=== PATIENT | female | born 1950 | race Caucasian/White ===

== ENCOUNTER 2018-07-07 13:20 | Emergency (ER) | payer OTHER, MEDICAID ==
[~2018-07-07] VITALS: Ht 157.5 cm; Wt 110.7 kg
[2018-07-07 13:44] VITALS: BP 171/82
[2018-07-07] MEDS ORDERED: ALBUTEROL/IPRATROPIUM 2.5MG/0.5MG, 3 ML NPPB ONE (14:00)
[2018-07-07 14:09] LABS: BASOPHILS # (AUTO) 0.04 x10^3/uL (0-0.1); BASOPHILS % (AUTO) 0 % (0-1); EOSINOPHILS # (AUTO) 0.28 x10^3/uL (0-0.4); EOSINOPHILS % (AUTO) 3 % (1-7); LYMPHOCYTES # (AUTO) 2.42 x10^3/uL (1-3.4); LYMPHOCYTES % (AUTO) 28 % (22-44); MD NO; MEAN CORPUSCULAR HEMOGLOBIN 28.7 pg (27.0-34.8); MEAN CORPUSCULAR HGB CONC 33.3 g/dL (32.4-35.8); MEAN CORPUSCULAR VOLUME 86.2 fL (80-100); MONOCYTES % (AUTO) 6 % (2-9); NEUTROPHILS # (AUTO) 5.55 x10^3/uL (1.8-6.8); NEUTROPHILS % (AUTO) 63 % (42-75); PLATELET COUNT 319 x10^3/uL (130-400); RED BLOOD COUNT 5.29 x10^6/uL (3.82-5.3); RED CELL DISTRIBUTION WIDTH 13.9 % (9.6-15.2)
[2018-07-07 14:19] LABS: ALANINE AMINOTRANSFERASE 21 U/L (12-78); ALBUMIN 3.4 g/dL (3.4-5.0); ANION GAP 5 mmol/L (5-15); CHLORIDE 109 mmol/L (98-107); CREATININE 0.84 mg/dL (0.55-1.02)
[2018-07-07 14:23] LABS: ALKALINE PHOSPHATASE 101 U/L (45-117); BILIRUBIN,TOTAL 0.4 mg/dL (0.2-1.0); TOTAL PROTEIN 7.4 g/dL (6.4-8.2); TROPONIN I < 0.015 ng/mL (0.000-0.045)
--- NOTE | 2018-07-07 16:45 | NUR ---
CALLED PT TO DO REPEAT VITALS AND PT DID NOT ANSWER.
--- NOTE | 2018-07-07 16:55 | NUR ---
CALLED PT TO DO REPEAT VITALS AND PT DID NOT ANSWER.
--- NOTE | 2018-07-07 17:03 | NUR ---
JANITOR CARETAKER: CALLED FOR ROOM, NO ANSWER
== END 2018-07-07 17:06 | disposition left against medical advice (07) ==
LOC: ED 17:00
DX: R06.00 Dyspnea, unspecified (principal); R05 Cough
CPT/HCPCS: 36415; 71046; 80053; 83880; 84484; 85025; 99284

== ENCOUNTER 2018-09-08 17:01 | Inpatient (IN) | payer MEDICAID, OTHER ==
[~2018-09-08] VITALS: Ht 167.6 cm; Wt 114.7 kg
[2018-09-08 17:32] LABS: BASOPHILS # (AUTO) 0.05 x10^3/uL (0-0.1); BASOPHILS % (AUTO) 1 % (0-1); EOSINOPHILS # (AUTO) 0.27 x10^3/uL (0-0.4); EOSINOPHILS % (AUTO) 3 % (1-7); LYMPHOCYTES # (AUTO) 2.38 x10^3/uL (1-3.4); LYMPHOCYTES % (AUTO) 25 % (22-44); MD NO; MEAN CORPUSCULAR HEMOGLOBIN 28.5 pg (27.0-34.8); MEAN CORPUSCULAR HGB CONC 33.4 g/dL (32.4-35.8); MEAN CORPUSCULAR VOLUME 85.4 fL (80-100); MEAN PLATELET VOLUME 7.7 fL (7.4-10.4); MONOCYTES % (AUTO) 7 % (2-9); NEUTROPHILS # (AUTO) 6.03 x10^3/uL (1.8-6.8); NEUTROPHILS % (AUTO) 64 % (42-75); PLATELET COUNT 316 x10^3/uL (130-400); RED BLOOD COUNT 5.29 x10^6/uL (3.82-5.3); RED CELL DISTRIBUTION WIDTH 14.1 % (9.6-15.2)
[2018-09-08 17:44] LABS: ALANINE AMINOTRANSFERASE 17 U/L (12-78); ALBUMIN 3.6 g/dL (3.4-5.0); ANION GAP 5 mmol/L (5-15); CALCIUM 9.3 mg/dL (8.5-10.1); CHLORIDE 108 mmol/L (98-107)
[2018-09-08] MEDS ORDERED: ALBUTEROL/IPRATROPIUM 2.5MG/0.5MG, 3 ML ONE (17:46)
[2018-09-08 17:48] LABS: ALKALINE PHOSPHATASE 107 U/L (45-117); BILIRUBIN,TOTAL 0.3 mg/dL (0.2-1.0); TOTAL PROTEIN 7.8 g/dL (6.4-8.2); TROPONIN I < 0.015 ng/mL (0.000-0.045)
[2018-09-08] MEDS ORDERED: methylPREDNISolone SOD SUCC 125 MG/2 ML IVP ONE (18:00)
[2018-09-08] MEDS ORDERED: SODIUM CHLORIDE FLUSH 10ML SYR IVF ONE (18:00)
[2018-09-08] MEDS ORDERED: methylPREDNISolone SOD SUCC 125 MG/2 ML ONE (18:01)
--- NOTE | 2018-09-08 19:28 | NUR ---
TP RN: CALLED [facility] PT. HAS [employer]; PER CORNELL CARTWRIGHT THEY WILL NOT ACCEPT PT. FOR TRASNFER UNLESS A HIGHER LEVEL OF CARE IS NECESSARY.
[2018-09-08] MEDS ORDERED: SODIUM CHLORIDE FLUSH 10ML SYR IVF PRN (19:30)
[2018-09-08] MEDS ORDERED: ACETAMINOPHEN 325 MG TABLET PO PRN (20:00)
[2018-09-08] MEDS ORDERED: hydrALAzine 20 MG/ML, 1ML IVPush PRN (20:00)
[2018-09-08] MEDS ORDERED: POLYETHYLENE GLYCOL 17 GM PACKET PO PRN (20:00)
[2018-09-08 20:10] VITALS: BP 118/67
[2018-09-08] MEDS: NICOTINE 21 MG/24 HR PATCH.TD24 TD SCH (20:57)
[2018-09-08] MEDS: ENOXAPARIN 40 MG/0.4 ML SQ SCH (21:00)
[2018-09-08 21:04] VITALS: BP 118/67
[2018-09-09] MEDS: methylPREDNISolone SOD SUCC 125 MG/2 ML IVPush SCH ×5 (00:26→23:33)
[2018-09-09] MEDS ORDERED: ALBUTEROL/IPRATROPIUM 2.5MG/0.5MG, 3 ML NPPB PRN (00:30)
[2018-09-09 01:01] VITALS: BP 126/70
[2018-09-09 05:36] LABS: BASOPHILS # (AUTO) 0.02 x10^3/uL (0-0.1); BASOPHILS % (AUTO) 0 % (0-1); EOSINOPHILS % (AUTO) 0 % (1-7); LYMPHOCYTES # (AUTO) 0.79 x10^3/uL (1-3.4); LYMPHOCYTES % (AUTO) 11 % (22-44); MD NO; MEAN CORPUSCULAR HEMOGLOBIN 28.8 pg (27.0-34.8); MEAN CORPUSCULAR HGB CONC 33.6 g/dL (32.4-35.8); MEAN CORPUSCULAR VOLUME 85.6 fL (80-100); MONOCYTES # (AUTO) 0.04 x10^3/uL (0.2-0.8); MONOCYTES % (AUTO) 1 % (2-9); NEUTROPHILS # (AUTO) 6.41 x10^3/uL (1.8-6.8); NEUTROPHILS % (AUTO) 88 % (42-75); PLATELET COUNT 302 x10^3/uL (130-400); RED BLOOD COUNT 4.95 x10^6/uL (3.82-5.3); RED CELL DISTRIBUTION WIDTH 14.1 % (9.6-15.2)
[2018-09-09 05:45] LABS: ANION GAP 5 mmol/L (5-15); CALCIUM 9.3 mg/dL (8.5-10.1); CHLORIDE 106 mmol/L (98-107)
[2018-09-09 05:46] LABS: CREATININE 0.83 mg/dL (0.55-1.02)
[2018-09-09 07:37] VITALS: BP 129/75
[2018-09-09 12:53] VITALS: BP 130/71
[2018-09-09] MEDS ORDERED: LIDODERM REMOVE PATCH NOTE XX SCH (17:00)
[2018-09-09] MEDS: ALBUTEROL/IPRATROPIUM 2.5MG/0.5MG, 3 ML NPPB SCH (20:00)
[2018-09-09 20:32] VITALS: BP 127/63
[2018-09-09] MEDS: GUAIFENESIN/COD200MG-20MG/10ML LIQUID PO PRN (20:49)
[2018-09-09] MEDS: NICOTINE 21 MG/24 HR PATCH.TD24 TD SCH (20:52)
[2018-09-09] MEDS: ENOXAPARIN 40 MG/0.4 ML SQ SCH (20:52)
[2018-09-09] MEDS: LIDODERM 5% PATCH TD SCH (20:52)
[2018-09-10 01:38] VITALS: BP 130/69
[2018-09-10] MEDS: GUAIFENESIN/COD200MG-20MG/10ML LIQUID PO PRN ×2 (02:47→13:34)
[2018-09-10] MEDS: methylPREDNISolone SOD SUCC 125 MG/2 ML IVPush SCH ×4 (05:08→23:38)
[2018-09-10] MEDS: ALBUTEROL/IPRATROPIUM 2.5MG/0.5MG, 3 ML NPPB SCH ×3 (07:00→19:31)
[2018-09-10 07:46] VITALS: BP 100/63
[2018-09-10] MEDS: NICOTINE 21 MG/24 HR PATCH.TD24 TD SCH (20:54)
[2018-09-10 20:55] VITALS: BP 121/70
[2018-09-10] MEDS: ENOXAPARIN 40 MG/0.4 ML SQ SCH (20:55)
[2018-09-10] MEDS: LIDODERM 5% PATCH TD SCH (20:55)
[2018-09-11 01:18] VITALS: BP 142/82
[2018-09-11] MEDS: methylPREDNISolone SOD SUCC 125 MG/2 ML IVPush SCH (05:52)
[2018-09-11] MEDS: GUAIFENESIN/COD200MG-20MG/10ML LIQUID PO PRN ×2 (05:54→19:32)
[2018-09-11] MEDS: ALBUTEROL/IPRATROPIUM 2.5MG/0.5MG, 3 ML NPPB SCH ×4 (07:20→22:58)
[2018-09-11] MEDS: HEPARIN 5,000 UNITS/ML, 1ML SQ SCH ×3 (07:30→23:30)
[2018-09-11 07:33] VITALS: BP 128/75
[2018-09-11] MEDS ORDERED: ACETAMINOPHEN 325 MG TABLET PO PRN (08:00)
[2018-09-11] MEDS: SODIUM CHLORIDE 0.9% 1,000 ML IV SCH (10:49)
[2018-09-11 13:39] VITALS: BP 105/61
[2018-09-11 19:28] VITALS: BP 127/77
[2018-09-11] MEDS: NICOTINE 21 MG/24 HR PATCH.TD24 TD SCH (21:15)
[2018-09-12] MEDS: SODIUM CHLORIDE 0.9% 1,000 ML IV SCH ×2 (03:14→14:00)
[2018-09-12] MEDS: GUAIFENESIN/COD200MG-20MG/10ML LIQUID PO PRN (03:17)
[2018-09-12 03:25] VITALS: BP 137/78
[2018-09-12 07:24] VITALS: BP 130/80
[2018-09-12] MEDS: HEPARIN 5,000 UNITS/ML, 1ML SQ SCH ×2 (07:30→15:40)
[2018-09-12] MEDS: ALBUTEROL/IPRATROPIUM 2.5MG/0.5MG, 3 ML NPPB SCH ×3 (07:33→16:00)
[2018-09-12] MEDS ORDERED: IPRA4AER PO (10:51)
[2018-09-12] MEDS ORDERED: GUAI100G2 PO (10:51)
== END 2018-09-12 18:55 | disposition home or self-care (01) | DRG 189 ==
LOC: ED 18:25 → 3NE 19:20
PROVIDERS: ADMIT Family Medicine; ATTEND Family Medicine
DX: J96.01 Acute respiratory failure with hypoxia (principal); J44.1 Chronic obstructive pulmonary disease with (acute) exacerbation; Z68.41 Body mass index [BMI] 40.0-44.9, adult; F17.210 Nicotine dependence, cigarettes, uncomplicated; E66.01 Morbid (severe) obesity due to excess calories; Z79.01 Long term (current) use of anticoagulants
CPT/HCPCS: 36415; 71045; 80048; 80053; 83880; 84484; 85025; 90656; 93005; 94640; 96374; G0378; J7620; J2930; J7030